=== PATIENT | female | born 1985 | race Caucasian/White ===

== ENCOUNTER 2025-02-02 15:26 | Outpatient (AMB) | payer MEDICAID, SELFPAY ==
--- NOTE | 2025-02-02 16:08 | GYNCLNT_ITS ---
Vital Signs 02/02/25 16:09 Height 1.47 m Height Method Stated Weight 47.344 kg Weight Measurement Method Standing Scale BMI 21.8 BP 135/90 H Blood Pressure Source Automatic Cuff Blood Pressure Location Right Upper Arm Position Sitting Respiration 17 Pulse 94 Pulse Source Monitor Temp 98.5 F Temp Source Temporal Artery Scan Pulse Oximetry (%) 97 Oxygen Delivery Method Room Air Allergies/Home Meds Allergies & Medications Allergies No Known Allergies Allergy (Verified 02/02/25 16:12) Medication Reconciliation No Known Home Medications 08/07/18 [History Confirmed 02/02/25] Intake Visit Data Collection New Patient or Established: New Patient (never been to [facility]) Reason for Visit:: REFERRAL MONORRHAGIA Seen by Clinical Staff ONLY (RN/MA): No Primary Therapist Required: No Do You Feel Safe at Home: Yes Authorities Contacted: N/A PCP or OBGYN visit in last 3 months: No Hx Now: No Are you currently on any form of Control: No Last menstrual period: 01/31/25 Pain Present Currently: Yes Pain Location: Abdomen Pain scale:: 10 Smoking Status Smoking Status: Current some day smoker Cessation Counseling Provided: ELISA was advised that quitting smoking is the single most important factor to protect the health of themselves and their family. Discussed the benefits of quitting smoking with patient. Encouraged patient to quit smoking and provided Cessation assistance materials and resources. 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 1. Little interest or pleasure in doing things: not at all 2. Feeling down, depressed, or hopeless: not at all Total score: 0 PHQ-9 3. Trouble falling or staying asleep, or sleeping too much: Not at all 4. Feeling tired or having little energy: Not at all 5. Poor appetite or overeating: Not at all 6. Feeling bad about yourself - or that you are a failure or have let yourself or your family down: Not at all 7. Trouble concentrating on things, such as reading the newspaper or watching television: Not at all 8. Moving or speaking so slowly that other people could have noticed? - Or the opposite - being so fidgety or restless that you have been moving around a lot more than usual: not at all 9. Thoughts that you would be better off or of hurting yourself in some way: Not at all Total score: 0 If you checked off any problems, how difficult have these problems made it for you to do your work, take care of things at home, or get along with other people?: not difficult at all Source: Developed by Drs. Abdelrahman Wilks, Marisol Mondragon, Adalberto Rutherford and colleagues, with an educational basil from [employer]. Depression screen completed yes Social History Living Situation History Marital Status: Lives With: Family Housing: House Tobacco History Smoking Status: Current some day smoker Second Hand Smoke Exposure: Yes Alcohol History Alcohol Intake: Former Domestic Abuse History Do You Feel Safe at Home: Yes History of Present Illness HPI Narrative Chief Complaint History of menorrhagia refractory to medical management, requesting endometrial ablation, heavy menses since age 9, episodes of bleeding lasting up to one month, severe bilateral lower quadrant pain Elisa Carlson, a patient with a history of osteogenesis imperfecta, anxiety, and depression, presents with a long-standing history of menorrhagia refractory to medical management. She is requesting endometrial ablation. The patient reports heavy menses since the onset of her cycles at 9 years of age. She experiences episodes of bleeding lasting up to one month, accompanied by severe bilateral lower quadrant pain. Her menstrual history has significantly impacted her quality of life, leading her to seek more definitive treatment options. Ms. Carlson has previously undergone dental surgery and multiple orthopedic procedures, likely related to her osteogenesis imperfecta. She is interested in pursuing endometrial ablation as a treatment option for her menorrhagia, having found medical management ineffective in controlling her symptoms. Medical History: - Anxiety - Depression - Osteogenesis imperfecta - Menorrhagia, refractory to medical management Surgical History: - Multiple orthopedic procedures - Dental surgery Obstetric History: - GPAL: A1 L4 - 4 spontaneous vaginal deliveries - 1 spontaneous Medications: - Folic acid 4 mg daily Social History: - Obstetric History: , all spontaneous vaginal deliveries Exam General General Appearance: alert, in no apparent distress and healthy appearing Head Head exam: atraumatic Neck Neck exam: Present normal inspection and trachea midline Chest Chest inspection: Present normal inspection and symmetric chest wall rise External exam: Present normal external exam; Absent tenderness Neuro Neurological exam: Present oriented X3 Psych Psychiatric exam: Present normal affect and normal mood Office Procedures OB Clinic LOC & Office Proc's Nursing/Assessment Patient Status: Initial/New Patient OB Clinic Nursing Assessment: Medication Reconciliation, Update PMH in EMR and Vital Signs OB Clinic Coordination of Care: Complex Care and Chronic Disease 1-5, Conse nt,records obtained, informed consent, Education Simp Pt/Fam and Results/Orders obtained New Patient Charge New Patient Point Assignment: 0982 New Patient 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 She experiences severe bilateral lower quadrant pain. The condition has been refractory to medical management. Plan: - Discuss endometrial ablation procedure - Provide patient with information about the procedure - Submit insurance information for approval - Once approved, obtain informed consent and schedule procedure - Perform ablation within a month, pending insurance approval - Order recent ultrasound Potential MTHFR Mutation Assessment: Given the patient's history of menorrhagia and previous spontaneous , there is a consideration for MTHFR mutation testing. This mutation can cause clotting issues and increase the risk of miscarriages. Plan: - Discuss MTHFR mutation testing options - If negative, recommend aspirin after conception - Consider genetic testing - Plan to perform testing 6 weeks post-procedure Folate Supplementation Assessment: Patient's history suggests a need for folate supplementation. Folate is essential, especially considering the patient's reproductive history and potential future pregnancies. Plan: - Recommend folate supplementation of 4 milligrams daily - Educate patient on folate metabolism and MTHFR mutation Alternative Treatment Options Assessment: While the patient is interested in endometrial ablation, it's important to discuss alternative treatment options, including laparoscopic hysterectomy, which would provide permanent relief from menorrhagia and associated symptoms. Plan: - Discuss laparoscopic hysterectomy as an alternative - Provide information on laparoscopic procedure - Provide printouts with detailed information
[2025-02-02 16:09] VITALS: BP 135/90; PULSE 94; RESP 17; TEMP 36.9; O2SAT 97; BMI 21.8
== END 2025-02-02 16:36 | disposition home or self-care (01) ==
LOC: HODSOBC 15:26
PROVIDERS: PCP Physician Assistant; Referring Provider Physician Assistant; Supervising Provider Obstetrics & Gynecology; Visit Provider Obstetrics & Gynecology
DX: N93.9 Abnormal uterine and vaginal bleeding, unspecified (principal); N92.0 Excessive and frequent menstruation with regular cycle; Z71.6 Tobacco abuse counseling; F17.210 Nicotine dependence, cigarettes, uncomplicated
CPT/HCPCS: 99203; G0463

== ENCOUNTER 2025-03-26 09:20 | Outpatient (AMB) | payer MEDICAID, SELFPAY ==
--- NOTE | 2025-03-26 09:20 | AMB.GYNCLNOT ---
Allergies/Home Meds Allergies & Medications Allergies No Known Allergies Allergy (Verified 03/26/25 09:22) Medication Reconciliation No Known Home Medications 08/07/18 [History Confirmed 03/26/25] Intake Visit Data Collection New Patient or Established: Established Patient (seen at 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 1. Little interest or pleasure in doing things: not at all 2. Feeling down, depressed, or hopeless: not at all Total score: 0 PHQ-9 3. Trouble falling or staying asleep, or sleeping too much: Not at all 4. Feeling tired or having little energy: Not at all 5. Poor appetite or overeating: Not at all 6. Feeling bad about yourself - or that you are a failure or have let yourself or your family down: Not at all 7. Trouble concentrating on things, such as reading the newspaper or watching television: Not at all 8. Moving or speaking so slowly that other people could have noticed? - Or the opposite - being so fidgety or restless that you have been moving around a lot more than usual: not at all 9. Thoughts that you would be better off or of hurting yourself in some way: Not at all Total score: 0 Source: Developed by Drs. Abdelrahman Wilks, Marisol Mondragon, Adalberto Rutherford and colleagues, with an educational basil from [employer]. Depression screen completed yes Social History Living Situation History Lives With: Family Housing: House Tobacco History Smoking Status: Former smoker Second Hand Smoke Exposure: Yes Alcohol History Alcohol Intake: Former Domestic Abuse History Do You Feel Safe at Home: Yes History of Present Illness HPI Narrative Marla Carlson returns for follow-up regarding her planned hysterectomy. She confirms her decision to proceed with the hysterectomy as previously discussed and agreed upon during her last visit. The patient has been taking tranexamic acid 650 milligrams over the past couple of days to help slow down her bleeding. She expresses interest in having a complete hysterectomy including removal of her ovaries to avoid future concerns about cancer or polyps, though acknowledges this will be discussed further at her pre-operative appointment. The patient has been taking tranexamic acid 650mg to slow down bleeding for the past couple of days. She lives with family and has children requiring childcare arrangements during recovery period. She has [id number] family members available to assist with childcare and recovery support. ROS: Genitourinary: Positive for bleeding. Exam Narrative Physical exam: No due to televisit Office Procedures OBC Clinic LOC & Office Proc's Nursing/Assessment Patient Status: Established Patient OB Clinic Nursing Assessment: Medication Reconciliation and Update PMH in EMR OB Clinic Coordination of Care: Complex Care and Chronic Disease 1-5, Consent,records obtained, informed consent, Education Simp Pt/Fam, 1 Ins Authorization and Staff clarify orders Established Patient Charge Established Patient Point Assignment: 85 Telehealth If patient is seen using Teleconference methods, complete New/Est section, but DO NOT shanice points only shanice the correct Telemed visit type Telemed Phone/Video with patient at home & Dr,PA,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 - Authorization change needed from previous surgical plan. - Currently taking tranexamic acid 650 mg for bleeding control. - Patient preference for complete removal including ovaries to avoid future cancer risk. Plan: - Change surgical authorization for hysterectomy. - Maintain scheduled surgery date of April 08. - Pre-operative appointment scheduled for April 07 to discuss procedure details and answer questions. - Discuss pros and cons of oophorectomy versus ovarian preservation at pre-operative visit. - Continue tranexamic acid 650 mg as currently prescribed - safe to continue and will be used intraoperatively for bleeding control.
== END 2025-03-26 09:55 | disposition home or self-care (01) ==
LOC: HODSOBC 09:20
PROVIDERS: Supervising Provider Obstetrics & Gynecology; Visit Provider Obstetrics & Gynecology
DX: N92.0 Excessive and frequent menstruation with regular cycle (principal); N93.9 Abnormal uterine and vaginal bleeding, unspecified; Z87.891 Personal history of nicotine dependence
CPT/HCPCS: 99212; G0463

== ENCOUNTER 2025-04-07 08:35 | Outpatient (AMB) | payer MEDICAID, SELFPAY ==
--- NOTE | 2025-04-07 08:48 | GYNCLNT_ITS ---
Vital Signs 04/07/25 08:56 Height 1.47 m Height Method Stated Weight 46.777 kg Weight Measurement Method Standing Scale BMI 21.6 BP 116/81 Blood Pressure Source Automatic Cuff Blood Pressure Location Left Upper Arm Position Sitting Respiration 16 Pulse 83 Pulse Source Monitor Temp 97.9 F Temp Source Oral Pulse Oximetry (%) 98 Oxygen Delivery Method Room Air Allergies/Home Meds Allergies & Medications Allergies No Known Allergies Allergy (Verified 04/07/25 08:58) Medication Reconciliation No Known Home Medications 08/07/18 [History Confirmed 04/07/25] Intake Visit Data Collection New Patient or Established: Established Patient (seen at [facility] within 3 years) Reason for Visit:: PRE OP Seen by Clinical Staff ONLY (RN/MA): 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 Do You Feel Safe at Home: Yes Authorities Contacted: N/A PCP or OBGYN visit in last 3 months: Yes Hx Now: No Are you currently on any form of Control: No Pain Present Currently: No Pain Scale Used: No-Lewis/Numerical Pain scale:: 0 Smoking Status Smoking Status: Never smoker 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 Menstrual regularity: irregular Flow: heavy Monthly: No Age at menarche: 12 Currently sexually 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 1. Little interest or pleasure in doing things: not at all 2. Feeling down, depressed, or hopeless: not at all Total score: 0 PHQ-9 3. Trouble falling or staying asleep, or sleeping too much: Not at all 4. Feeling tired or having little energy: Not at all 5. Poor appetite or overeating: Not at all 6. Feeling bad about yourself - or that you are a failure or have let yourself or your family down: Not at all 7. Trouble concentrating on things, such as reading the newspaper or watching t elevision: Not at all 8. Moving or speaking so slowly that other people could have noticed? - Or the opposite - being so fidgety or restless that you have been moving around a lot more than usual: not at all 9. Thoughts that you would be better off or of hurting yourself in some way: Not at all Total score: 0 Source: Developed by Drs. Abdelrahman Wilks, Marisol Mondragon, Adalberto Rutherford and colleagues, with an educational basil from [employer]. Depression screen completed yes Social History Living Situation History Lives With: Family Housing: House Tobacco History Smoking Status: Never smoker Second Hand Smoke Exposure: Yes Alcohol History Alcohol Intake: Never Domestic Abuse History Do You Feel Safe at Home: Yes History of Present Illness HPI Narrative Marla Carlson presents with severe menorrhagia that has been refractory to medical therapy, with episodes of bleeding lasting up to one month in duration. She reports only temporary relief from tranexamic acid. The patient is presenting for preoperative visit prior to scheduled total laparoscopic hysterectomy. She has a history of osteogenesis imperfecta with multisystem impact and a possible MTHFR mutation with risk of hypercoagulability. The patient denies current use of blood thinners or aspirin. The patient has been taking tranexamic acid, which provides only temporary relief for menorrhagia. She is a 39-year-old female. The patient lives with children who require care and transportation. 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 Exam General General Appearance: alert, in no apparent distress and healthy appearing Head Head exam: atraumatic Neck Neck exam: Present normal inspection and trachea midline Chest Chest inspection: Present normal inspection and symmetric chest wall rise External exam: Present normal external exam; Absent tenderness Neuro Neurological exam: Present oriented X3 Psych Psychiatric exam: Present normal affect and normal mood Office Procedures OBC Clinic LOC & Office Proc's Nursing/Assessment Patient Status: Established Patient OB Clinic Nursing Assessment: Medication Reconciliation, Update PMH in EMR and Vital Signs OB Clinic Coordination of Care: Complex Care and Chronic Disease 1-5, Consent,records obtained, informed consent, Education Simp Pt/Fam, 1 Ins Authorization, Lab and Imaging orders, Results/Orders obtained and Staff clarify orders Established Patient Charge Established Patient Point Assignment: 120 Established Patient Point Charge: EP Level 4 (120-155) Assessment & Plan Diagnosis / Problem List (1) Menorrhagia: Status: Acute (2) Abnormal uterine and vaginal bleeding, unspecified: Status: Acute Plan Severe menorrhagia refractory to medical therapy: - Bleeding episodes lasting up to one month refractory to medical therapy. - Only temporary relief from tranexamic acid. - Surgical intervention with total laparoscopic hysterectomy indicated. Plan: - Total laparoscopic hysterectomy with bilateral salpingo-oophorectomy scheduled for tomorrow. - Procedure will involve small incisions (one umbilical, two lateral) with vaginal extraction of uterus. - Informed consent obtained including discussion of less than 1% risk of conversion to open procedure. - IV tranexamic acid to be administered immediately before surgery. - Postoperative medications to include pain medicine, stool softener, and hormone replacement therapy. - Postoperative activity restrictions for one month: ? No lifting weights, no sexual intercourse, no climbing multiple flights of stairs or hiking. ? After first 5 days, many restrictions will be released. ? After first week, patient may drive and perform light work but no vacuuming, mopping, or pushing furniture. - Expected healing time approximately one month, with vaginal cuff sutures taking longest to heal. - Same-day discharge anticipated if pain well-controlled, otherwise possible overnight stay. - Idggs catheter removal after 6 hours with nursing assistance for ambulation. Osteogenesis imperfecta with multisystem impact: - History of osteogenesis imperfecta with multisystem involvement. - May impact surgical planning and recovery. Plan: - No specific perioperative modifications discussed for osteogenesis imperfecta. Possible MTHFR mutation with hypercoagulability risk: - Possible MTHFR mutation with associated risk of hypercoagulability. - Requires consideration for perioperative thrombosis prevention. Plan: - Patient confirmed not currently on blood thinners or aspirin. - IV tranexamic acid to be administered before surgery.
[2025-04-07 08:56] VITALS: BP 116/81; PULSE 83; RESP 16; TEMP 36.6; O2SAT 98; BMI 21.6
== END 2025-04-07 09:05 | disposition home or self-care (01) ==
LOC: HODSOBC 08:35
PROVIDERS: PCP Physician Assistant; Referring Provider Physician Assistant; Supervising Provider Obstetrics & Gynecology; Visit Provider Obstetrics & Gynecology
DX: N92.0 Excessive and frequent menstruation with regular cycle (principal); N93.9 Abnormal uterine and vaginal bleeding, unspecified
CPT/HCPCS: 99214; G0463

== ENCOUNTER 2025-04-08 12:51 | Observation (INO) | payer MEDICAID, SELFPAY ==
[2025-04-05 10:19] VITALS: BMI 21.8
[2025-04-05 11:10] LABS: HCG,Qualitative Serum Negative
[2025-04-05 11:15] LABS: Basophils # (Auto) 0.1 Thou/mm3 (0.0-0.2); Basophils % (Auto) 1 % (0-2.5); Eosinophils # (Auto) 0.5 Thou/mm3 (0.0-0.5); Eosinophils % (Auto) 6 % (0-10); Hematocrit 39.5 % (36.0-46.0); Hemoglobin 13.6 g/dL (12.0-16.0); Immature Granulocytes Auto 0.02 Thou/mm3 (0.00-0.00); Lymphocytes # (Auto) 2.9 Thou/mm3 (1.0-4.8); Lymphocytes % (Auto) 35 % (10-50); Mean Corpuscular HGB Conc 34.4 g/dl (31.0-37.0); Mean Corpuscular Hemoglobin 30.8 pg (25.0-35.0); Mean Corpuscular Volume 89 fL (80-100); Monocytes # (Auto) 0.5 Thou/mm3 (0.0-0.8); Monocytes % (Auto) 6 % (0-12); Neutrophils # (Auto) 4.3 Thou/mm3 (1.8-7.7); Neutrophils % (Auto) 53 % (37-80); Nucleated Red Blood Cell # 0.00 Thou/mm3 (0.00-0.00); Nucleated Red Blood Cell % 0 /100 WBC (0); Platelet Count 357 Thou/mm3 (140-440); RDW Standard Deviation 41.0 fL (36.4-46.3); Red Blood Count 4.42 Miln/mm3 (4.00-5.20); White Blood Count 8.1 Thou/mm3 (3.6-11.0)
[2025-04-05 11:27] LABS: Alanine Aminotransferase < 7 U/L (10-49); Albumin, Serum 4.4 gm/dL (3.5-5.0); Albumin/Globulin Ratio 1.9 (1.2-2.2); Alkaline Phosphatase 75 U/L (46-116); Anion Gap 7 (7-16); Aspartate Amino Transferase 11 U/L (0-34); BUN/Creatinine Ratio 7 Ratio (12-20); Bilirubin,Total 0.3 mg/dL (0.3-1.2); Blood Urea Nitrogen < 5 mg/dL (9-23); Calcium 8.9 mg/dL (8.3-10.6); Calcium (Corrected) 8.9 mg/dL (8.5-10.1); Carbon Dioxide 27.6 mMol/L (20.0-31.0); Chloride 107 mMol/L (98-107); Creatinine (Component) 0.7 mg/dL (0.6-1.3); Estimated Creatinine Clearance 69.7 mL/min (>60); Globulin 2.3 gm/dL (2.3-3.5); Glucose 103 mg/dL (74-106); Osmolality,Calculated 280 (275-295); Potassium 3.4 mMol/L (3.4-5.1); Sodium 142 mMol/L (136-145); Total Protein 6.7 gm/dL (5.7-8.2); eGFR > 60 See Note
[2025-04-08] VITALS (12 sets, daily range): BP systolic 109–152; BP diastolic 69–102; PULSE 56–96; RESP 12–18; TEMP 35.9–37.4; O2SAT 96–100; BMI 21.2; BMI 24.0
[2025-04-08] MEDS: RINGERS LACTATED 1000 ML 1,000 ML 20 ML IV (09:32)
--- NOTE | 2025-04-08 11:35 | PD.GYNPROC ---
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 Identity was confirmed using two patient identifiers. General anesthesia was administered and the patient was placed in dorsal lithotomy position. The abdomen and perineum were prepped and draped in the usual sterile fashion. A Diggs catheter was placed for continuous drainage. A surgical timeout was performed. A vaginal exam was prepared, cervix was dilated and a [employer]-care uterine manipulator with colpotomy ring was placed vaginally and secured. Three 5 mm laparoscopic ports were used: one at the umbilicus and two ancillary ports placed under direct visualization in the lower quadrants. All dissection was carried out using the Harmonic device. After insufflation and entry, a thorough inspection of the abdomen and pelvis was performed. The uterus was noted to be bulky and adenomyotic. No bowel or adnexal pathology was visualized. The patient was placed in steep Trendelenburg position. Dissection was started on the patient?s right side. The fallopian tube was first dissected and divided, followed by the utero-ovarian ligament, and then the round ligament. The broad ligament was opened, and dissection was carried down the right pelvic sidewall to expose the uterine vasculature. The right uterine artery was sealed and divided. The bladder flap was developed by incising the anterior peritoneum and reflecting the bladder inferiorly. The same steps were repeated on the left side: sequential division of the fallopian tube, utero-ovarian ligament, and round ligament, followed by sealing of the left uterine artery after exposing the broad ligament and pelvic sidewall. After all pedicles were secured and the uterus was fully mobilized, the colpotomy was initiated posteriorly and carried circumferentially using electrosurgical energy, guided by the colpotomy ring. The uterus was delivered vaginally and handed off the field. The vaginal cuff was inspected and closed using 0 Vicryl in a running locked fashion, suturing from the vaginal aspect. Hemostasis was confirmed. Surgicel powder was applied over the cuff and dissection sites. The pelvis and abdomen were irrigated, and all irrigation fluid was suctioned out. Pneumoperitoneum was released. All trocars were removed under direct visualization, and the skin incisions were closed using 4-0 Monocryl in a subcuticular fashion. Dermabond Prineo dressing was applied. The patient was awakened from anesthesia and transferred to the recovery room in stable condition. All instrument, sponge, and lap counts were correct ?2. Specimen: uterus, left tube and right tube Estimated blood loss (ml): 200 Complications: none Surgical staff Operation Date: 04/08/25 10:15 Case Staff Anesthesiologist: Rafi Chappell RNglass washer and carrier: Mary Fernandez Diagnosis Discharge Diagnosis (1) Menorrhagia: Status: Acute (2) Abnormal uterine and vaginal bleeding, unspecified: Status: Acute Problem List Completed Was Problem List Reviewed/Reconciled?: Yes
--- NOTE | 2025-04-08 11:46 | SUR.PHASEI ---
1146: Pt. wakes to name then drifts back to sleep, vitals stable, breathing unlabored, no signs of distress, x4 dermabond sites on ABD CDI, peripad in place CDI, no active bleed noted, report received from MD Chappell and Shahla GUSTAFSON.
--- NOTE | 2025-04-08 11:58 | SUR.PHASEI ---
pt awake, alert, able to follow commands, breathing unlabored, vitals stable, no signs of distress, dressing to abdomen clean, dry, and intact, peripad in place clean, and dry, report from Bri GUSTAFSON
[2025-04-08] MEDS: ONDANSETRON INJ 2 MG/ML INJ 2 ML 4 MG IV (12:09)
--- NOTE | 2025-04-08 12:32 | SUR.PHASEI ---
report to Bri GUSTAFSON
[2025-04-08] MEDS: SODIUM CHLORIDE 0.9% 1000 ML 1,000 ML 200 ML IV (12:39)
[2025-04-08] MEDS: METOCLOPRAMIDE INJ 5 MG/ML VIAL 2 ML 10 MG IVP (12:43)
--- NOTE | 2025-04-08 12:50 | SUR.PHASEII ---
1250: Pt. AAOx4, vitals stable, breathing unlabored, no complaint of pain, complaint of nausea, x4 dermabond sites to ABD CDI, peripad in place CDI, no active bleed noted, pt. ate a few ice chips, gave report to Zulema GUSTAFSON prior to transfer to room 355, family made aware of transfer to room. Pt. family has personal belongings.
[2025-04-08] MEDS: KETOROLAC INJ 30 MG/ML VIAL IVP (13:55)
[2025-04-08] MEDS: ACETAMINOPHEN IVPB 1,000 MG/100 ML VIAL 250 MG IV (15:37)
[2025-04-08] MEDS: DOCUSATE SOD 100 MG CAPSULE PO (15:38)
--- NOTE | 2025-04-13 13:48 | PD.ANESPROG ---
Documentation for date of: 04/13/25 POST ANESTHESIA NOTE: Patient had GETA for hysterectomy surgery on 04/08/25. I just called her number for follow up but no answer. Rafi Chappell MD Anesthesia Progress Note Progress Note Most recent Vital Signs: Last Vital Signs Temp 97.0 F 04/08/25 15:16 Pulse 56 L 04/08/25 15:16 Resp 16 04/08/25 15:16 BP 109/69 04/08/25 15:16 Pulse Ox 98 04/08/25 15:16 O2 Del Method Room Air 04/08/25 15:16 O2 Flow Rate 2 04/08/25 12:15
== END 2025-04-08 18:17 | disposition home or self-care (01) ==
LOC: S3NX 13:15
PROVIDERS: Admitting Provider Obstetrics & Gynecology; PCP Physician Assistant; Referring Provider Obstetrics & Gynecology; Visit Provider Obstetrics & Gynecology
PROC: 0UT94ZZ Resection of Uterus, Percutaneous Endoscopic Approach (ICD-10-PCS; CPT 58571; principal; 2025-04-08 10:00)
DX: N92.0 Excessive and frequent menstruation with regular cycle (principal); N83.11 Corpus luteum cyst of right ovary; Q78.0 Osteogenesis imperfecta
CPT/HCPCS: 58571; 36415; 80053; 84703; 85025; 86850; 86900; 86901; 96374; 96375; A4217; A4649; G0378; J0131; J0690; J1100; J1171; J1885; J2405; J2704; J2710; J2765; J3010; J3490; J7030; J7120; A9270; J1596; J1805

== ENCOUNTER 2025-06-20 06:32 | Emergency (ER) | payer MEDICAID, SELFPAY ==
[2025-06-20 07:05] VITALS: BP 140/91; PULSE 112; RESP 18; TEMP 37.2; O2SAT 98; BMI 19.8
--- NOTE | 2025-06-20 07:30 | PD.EDRME ---
Rapid Medical Screening Exam E Arrival date/time: 06/20/25 06:32 This is a 39-year-old female that comes into the emergency room room with complaints of left flank pain that started last night. Patient has been having nausea vomiting and fever. Patient states she recently had a hysterectomy where they injured her bladder and now she is incontinent and wears a diaper. I have greeted and performed a focused initial assessment of this patient. Initial appropriate labs ordered at this time. A comprehensive ED assessment and evaluation of the patient and analysis of all test and completion of medical decision making process will be conducted by additional ED provider. Chief Complaint: Abdominal Pain Time Seen by Provider: 06/20/25 06:46 Vital signs: Vital Signs Temperature 99.0 F 06/20/25 07:05 Pulse Rate 112 H 06/20/25 07:05 Respiratory Rate 18 06/20/25 07:05 Blood Pressure 140/91 H 06/20/25 07:05 Pulse Oximetry (%) 98 06/20/25 07:05 Oxygen Delivery Method Room Air 06/20/25 07:05 Exam: Alert and oriented breathing even and unlabored skin warm and dry Clinical Impression: Abdominal pain
[2025-06-20] MEDS: ONDANSETRON ODT 4 MG TABRAP PO (07:52)
[2025-06-20 08:07] LABS: Collection Type, Urine Voided
[2025-06-20 08:14] LABS: Basophils # (Auto) 0.0 Thou/mm3 (0.0-0.2); Basophils % (Auto) 0 % (0-2.5); Eosinophils # (Auto) 0.0 Thou/mm3 (0.0-0.5); Eosinophils % (Auto) 0 % (0-10); Hematocrit 33.9 % (36.0-46.0); Hemoglobin 11.6 g/dL (12.0-16.0); Immature Granulocytes Auto 0.12 Thou/mm3 (0.00-0.00); Lymphocytes # (Auto) 0.4 Thou/mm3 (1.0-4.8); Lymphocytes % (Auto) 2 % (10-50); Mean Corpuscular HGB Conc 34.2 g/dl (31.0-37.0); Mean Corpuscular Hemoglobin 29.0 pg (25.0-35.0); Mean Corpuscular Volume 85 fL (80-100); Monocytes # (Auto) 0.8 Thou/mm3 (0.0-0.8); Monocytes % (Auto) 4 % (0-12); Neutrophils # (Auto) 17.5 Thou/mm3 (1.8-7.7); Neutrophils % (Auto) 93 % (37-80); Nucleated Red Blood Cell # 0.00 Thou/mm3 (0.00-0.00); Nucleated Red Blood Cell % 0 /100 WBC (0); Platelet Count 396 Thou/mm3 (140-440); RDW Standard Deviation 46.7 fL (36.4-46.3); Red Blood Count 4.00 Miln/mm3 (4.00-5.20); White Blood Count 18.9 Thou/mm3 (3.6-11.0)
[2025-06-20 08:29] LABS: Bilirubin,Urine Negative (Negative); Blood,Urine 2+ (Negative); Clarity,Urine Turbid (Clear/Hazy); Color,Urine Yellow (Lt Yel-Yel); Glucose, Urine Negative (Negative); Ketones,Urine 1+ (Negative); Leukocyte Esterase,Urine Positive (Negative); Nitrite,Urine Negative (Negative); PH,Urine 6.0 (5.0-7.0); Protein,Urine 1+ (Neg - Trace); RBC,Urine 14 /hpf (0-3); Specific Gravity,Urine 1.021 (1.001-1.035); Squamous Epithelial Cell,Urine < 1 /hpf (0-5); Urobilinogen,Urine 2.0 mg/dL (0.0-1.0); WBC,Urine 84 /hpf (0-5)
[2025-06-20 08:33] LABS: Albumin, Serum 4.4 gm/dL (3.5-5.0); Albumin/Globulin Ratio 1.8 (1.2-2.2); Alkaline Phosphatase 77 U/L (46-116); Anion Gap 7 (7-16); Aspartate Amino Transferase 12 U/L (0-34); BUN/Creatinine Ratio 9 Ratio (12-20); Bilirubin,Total 1.0 mg/dL (0.3-1.2); Blood Urea Nitrogen 8 mg/dL (9-23); Calcium 9.0 mg/dL (8.3-10.6); Calcium (Corrected) 9.0 mg/dL (8.5-10.1); Carbon Dioxide 27.0 mMol/L (20.0-31.0); Chloride 105 mMol/L (98-107); Creatinine (Component) 0.9 mg/dL (0.6-1.3); Estimated Creatinine Clearance 54.2 mL/min (>60); Globulin 2.5 gm/dL (2.3-3.5); Glucose 186 mg/dL (74-106); Lipase 26 U/L (12-53); Osmolality,Calculated 280 (275-295); Potassium 3.0 mMol/L (3.4-5.1); Sodium 139 mMol/L (136-145); Total Protein 6.9 gm/dL (5.7-8.2); eGFR > 60 See Note
[2025-06-20 08:43] LABS: Alanine Aminotransferase < 7 U/L (10-49)
[2025-06-20 08:46] LABS: HCG Qualitative,Urine Negative
[2025-06-20 08:47] LABS: Culture Indicated,Urine Yes
[2025-06-20] MEDS: HYDROcodone/APAP 5/325 TABLET 1 TAB PO (09:10)
[2025-06-20 09:11] LABS: Amphetamine/Methamp Scrn,U Negative (Negative); Barbiturate Screen,Urine Negative (Negative); Benzodiazepines Screen,Urine Negative (Negative); Benzoylecgonine Screen, Ur Negative (Negative); Fentanyl Screen,Urine Negative (Negative); Opiate Screen,Urine Negative (Negative); THC Screen,Urine Positive (Negative)
--- NOTE | 2025-06-20 09:12 | PC.NURSE ---
patient signed out AMA, states I don't wanna wait her anyl
--- NOTE | 2025-06-20 09:13 | PC.NURSE ---
Patient signed out AMA, states i dont want to stay here anylonger , encouraged patient to stay, educated patient and her of consequences if leaving the ER, however, patient sistent upon signing out, encouraged patient and her with her to return for any reason.
== END 2025-06-20 09:15 | disposition left against medical advice (07) ==
PROVIDERS: Emergency Provider Nurse Practitioner Family; PCP Family Medicine
DX: R10.9 Unspecified abdominal pain (principal); R11.2 Nausea with vomiting, unspecified; R50.9 Fever, unspecified; Z53.21 Procedure and treatment not carried out due to patient leaving prior to being seen by health care provider
CPT/HCPCS: 36415; 80053; 80307; 81001; 81025; 83690; 85025; 87086; 99282; Q0162; A9270